=== PATIENT | female | born 1960 | race American Indian/Alaskan Native ===

== ENCOUNTER 2017-04-04 09:40 | Emergency (ER) | payer SELFPAY ==
--- NOTE | 2017-04-04 12:17 | Emergency Department Report ---
HPI - General Chief Complaint: Extremity Problem,Nontraumatic Time Seen by Provider: 04/04/17 12:10 - HPI HPI: Patient is a 56-year-old female with no prior medical history who presents to ED complaining of wound like lesion to her right ankle 2 months patient states that the wound is not eating he leaned. Patient states his itching intermittently. Patient states she stridor put some type of topical antibiotic on a no relief. She denies fevers/chills/nausea/vomiting/abdominal pain or any injuries to the foot. ED Past Medical Hx - Past Medical History Hx Hypertension: Yes - Surgical History Past Surgical History?: No - Social History Smoking Status: Never Smoker Substance Use Type: None - Medications Home Medications: Home Medications Medication Instructions Recorded Confirmed Last Taken Type Clotrimazole 1% [Lotrimin] 1 applic TP BID #1 tube 04/04/17 Unknown Rx Itraconazole [Onmel] 200 mg PO BID #10 tab 04/04/17 Unknown Rx ED Review of Systems ROS: Stated complaint: RIGHT FOOT WOUND Other details as noted in HPI Constitutional: denies: chills, fever Eyes: denies: eye pain, eye discharge, vision change ENT: denies: ear pain, throat pain Respiratory: denies: cough, shortness of breath, wheezing Cardiovascular: denies: chest pain, palpitations Endocrine: no symptoms reported Gastrointestinal: denies: abdominal pain, nausea, diarrhea Genitourinary: denies: urgency, dysuria, discharge Musculoskeletal: denies: back pain, joint swelling, arthralgia Skin: pruritus. denies: rash, lesions Neurological: denies: headache, weakness, paresthesias Psychiatric: denies: anxiety, depression Hematological/Lymphatic: denies: easy bleeding, easy bruising Physical Exam - Physical Exam Vital Signs: Vital Signs 04/04/17 10:03 Temperature 97.9 F Pulse Rate 60 Respiratory 16 Rate Blood Pressure 133/67 O2 Sat by Pulse 100 Oximetry Physical Exam: GENERAL: Alert and oriented x3, no apparent distress, Normal Gait, atraumatic. HEAD: Head is normocephalic and a-traumatic. EYES: Pupils are equal, round, and reactive to light and accommodation. NOSE: Nose symetrical, Nontender, MOUTH:Mouth is well hydrated and without lesions. NECK: Supple. Non edematous, LUNGS: Symetrical with respiration, No wheezing, no rales or crackles, CTAB. HEART: S1, S2 present, regular rate and rhythm without murmur, EXTREMITIES/MUSCULOSKELETAL: No cyanosis or edema. Full ROM bilaterally. UE/LE Pulses 2+ bilaterally. SKIN: one raised 3-4 in diameter hypopigmented dermarcated lesion cocsitent with ringworm. Warm and dry, No other lesions, No ulceration or induration present. ED Course Vital Signs 04/04/17 10:03 Temperature 97.9 F Pulse Rate 60 Respiratory 16 Rate Blood Pressure 133/67 O2 Sat by Pulse 100 Oximetry ED Medical Decision Making - Medical Decision Making 56-year-old female presents with tinea coporis ED course: I discussed with patient the lesion will resolve after antifungal application. This patient to follow-up with the primary care physician. Discussed the patient to avoid scratching to prevent spreading. Vital signs are normal patient is in no acute distress . Critical care attestation.: If time is entered above; I have spent that time in minutes in the direct care of this critically ill patient, excluding procedure time. ED Disposition Clinical Impression: Ringworm, body, Tinea corporis Disposition: DC-01 TO HOME OR SELFCARE Is pt being admited?: No Does the pt Need Aspirin: No Condition: Stable Instructions: Tinea Corporis (ED) Additional Instructions: Take medication as prescribed Follow-up with primary care physician. Prescriptions: Clotrimazole 1% [Lotrimin] 1 applic TP BID #1 tube Itraconazole [Onmel] 200 mg PO BID #10 tab Referrals: PRIMARY CARE, [Primary Care Provider] - 3-5 Days [facility] [Outside] - 3-5 Days [facility] [Outside] - 3-5 Days Forms: Work/School Release Form(ED) Time of Disposition: 12:18
[2017-04-04 12:28] VITALS: BP 137/83
== END 2017-04-04 12:27 | disposition home or self-care (01) ==
LOC: ED 09:40
DX: B35.9 Dermatophytosis, unspecified (principal); B35.4 Tinea corporis
CPT/HCPCS: 99282